=== PATIENT | female | born 1945 | race Caucasian/White ===

== ENCOUNTER 2016-12-24 06:44 | Emergency (ER) | payer OTHER ==
--- NOTE | ~2016-12-24 | CR21 ---
[facility]. [facility] A Service of [facility] / [facility] RADIOLOGY TEXT RESULTS PATIENT: OANH FOX LOCATION: SED : 47 UNIT #: [id number] AGE: [address]: Rohan Maya MD SEX: F ORDER DR: [id number] [place] [id number] E MR#: [id number] Acc #: [id number] NAME: OANH FOX : 1945 SEX: F STUDY DATE/TIME: 12/24/2016 6:13 UNIT: SED ROOM: STUDY DESCRIPTION: CR Ankle Min 3 Views Rt Attending Physician: Rohan Maya M.D. Ordering Physician: Rohan Maya M.D. Primary Care Physician: No Primary Care Physician MEDICAL IMAGING REPORT This report is preliminary unless electronic signature is present. EXAM Right ankle, 12/24/2016. HISTORY 71-year-old female with right ankle pain and swelling since fall last week. COMPARISON Right leg same date. FINDINGS 3 views of the right ankle demonstrate no acute fracture or dislocation. Ankle mortise symmetric. Talar dome intact. No ankle effusion. There is diffuse soft tissue swelling throughout the visualized lower leg and ankle, nonspecific. IMPRESSION 1. No acute fracture or dislocation. 2. Diffuse soft tissue swelling throughout the visualized lower leg and ankle, nonspecific. Dictated by... West Garcia M.D. THIS IS AN ELECTRONICALLY VERIFIED REPORT West Garcia M.D. at 12/24/2016 3:12 PM [email or web address]/[email or web address] TD: 12/24/2016 12:04 JOB #: [id number] [facility]. [facility] A Service [facility] RADIOLOGY TEXT RESULTS PATIENT: OANH FOX LOCATION: SED : 47 UNIT #: [id number] AGE: [address]: Rohan Maya MD SEX: F ORDER DR: MEDICAL IMAGING REPORT
--- NOTE | ~2016-12-24 | CR253 ---
[facility] A Service of [facility] RADIOLOGY TEXT RESULTS PATIENT: OANH FOX LOCATION: SED : 47 UNIT #: [id number] AGE: [address]: Rohan Maya MD SEX: F ORDER DR: [id number] [address] [address] [id number] E MR#: [id number] Acc #: [id number] NAME: OANH FOX : 1945 SEX: F STUDY DATE/TIME: 12/24/2016 6:13 UNIT: SED ROOM: STUDY DESCRIPTION: CR Tibia and Fibula 2 Views Rt Attending Physician: Rohan Maya M.D. Ordering Physician: Rohan Maya M.D. Primary Care Physician: No Primary Care Physician MEDICAL IMAGING REPORT This report is preliminary unless electronic signature is present. EXAM Right leg 12/24/2016. HISTORY 71-year-old female with right leg pain and swelling for 1 week, status post fall. COMPARISON Right ankle same date. FINDINGS 2 views of the right leg demonstrate no evidence of acute fracture or dislocation. Mild to moderate degenerative change of the medial compartment of the knee. There is diffuse soft tissue swelling with numerous surgical clips noted along the medial aspect of the right leg. IMPRESSION 1. No acute fracture or dislocation. 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 2. Diffuse soft tissue swelling throughout the right leg with multiple surgical clips noted medially. No soft tissue gas. Dictated by... West Garcia M.D. THIS IS AN ELECTRONICALLY VERIFIED REPORT West Garcia M.D. at 12/24/2016 3:12 PM Gavin TD: 12/24/2016 12:07 JOB #: [id number] [facility] A Service of [facility] RADIOLOGY TEXT RESULTS PATIENT: OANH FOX LOCATION: SED : 47 UNIT #: [id number] AGE: [address]: Rohan Maya MD SEX: F ORDER DR: MEDICAL IMAGING REPORT
[~2016-12-24 06:44] MED LIST: ALLEGRA; AMARYL; ASPIRIN; LOPRESSOR
== END 2016-12-24 07:34 | disposition home or self-care (01) ==
LOC: SED 06:44
DX: L03.115 Cellulitis of right lower limb (principal); E11.9 Type 2 diabetes mellitus without complications; Z95.1 Presence of aortocoronary bypass graft; Z88.1 Allergy status to other antibiotic agents; Z88.8 Allergy status to other drugs, medicaments and biological substances
CPT/HCPCS: 73590; 73610; 82947; 99283